=== PATIENT | female | born 1990 | race Caucasian/White ===

== ENCOUNTER → 2024-08-15 | Outpatient (CLI) | payer OTHER, SELFPAY ==
[2024-08-15 12:17] LABS: Beta HCG,Quantitative 4 mIU/mL (<5.0)
== END | disposition home or self-care (01) ==
LOC: COPL 10:50
PROVIDERS: PCP Nurse Practitioner Family; Referring Provider Specialist; Visit Provider Specialist
DX: O03.9 Complete or unspecified spontaneous abortion without complication (principal)
CPT/HCPCS: 36415; 84702